=== PATIENT | male | born 1985 | race Caucasian/White ===

== ENCOUNTER 2021-01-02 14:54 | Emergency (ER) | payer SELFPAY ==
[~2021-01-02] VITALS: Ht 180.3 cm; Wt 84.0 kg
[2021-01-02] MEDS ORDERED: IV NORMAL SALINE 1000ML BAG 1,000 ML IV ONE (15:00)
--- NOTE | 2021-01-02 15:12 | PHYS DOC ---
General Adult HPI: HPI: Patient is a 35 year old male who presents with brought here by EMS from his job at [employer] [employer] after they called EMS because he could not stay awake. Patient states that he does have addiction problems. He states that he gets [address] off the [address] take for his chronic knee and back pain. He admits to smoking Amphetamines last night. He states he never been diagnosed with anything. He states he takes it for pain and to help keep him up because he works very long shifts. Patient currently very drowsy and falling asleep but is still oriented x3. He is easily waking up. We did have to put him on 2 L of oxygen as he desaturated when he fell asleep. Patient is refusing Narcan stat ing that " it will make me throw up". Denies chest pain, shortness of breath, abdominal pain, nausea, vomiting, diarrhea, fevers, headache, dizziness, focal weakness, numbness or tingling. (HERMILA CEVALLOS APRN) Review of Systems: Review of Systems: Constitutional: Denies fever or chills. [] Eyes: Denies change in visual acuity. [] HENT: Denies nasal congestion or sore throat. [] Respiratory: Denies cough or shortness of breath. [] Cardiovascular: Denies chest pain or edema. [] GI: Denies abdominal pain, nausea, vomiting, bloody stools or diarrhea. [] : Denies dysuria. [] Musculoskeletal: Denies back pain or joint pain. [] Integument: Denies rash. [] Neurologic: Denies headache, focal weakness or sensory changes. +AMS Endocrine: Denies polyuria or polydipsia. [] Lymphatic: Denies swollen glands. [] Psychiatric: Denies depression or anxiety. [] (HERMILA CEVALLOS FLOORHAND) Heart Score: C/O Chest Pain: No Risk Factors: Risk Factors: DM, Current or recent (<one month) smoker, HTN, HLP, family history of CAD, obesity. Risk Scores: Score 0 - 3: 2.5% MACE over next 6 weeks - Discharge Home Score 4 - 6: 20.3% MACE over next 6 weeks - Admit for Clinical Observation Score 7 - 10: 72.7% MACE over next 6 weeks - Early Invasive Strategies (HERMILA CEVALLOS APRN) Current Medications: Current Medications Medications (Trade) Dose Ordered Sig/Sudhir Start Time Stop Time Status Last Admin Dose Admin Sodium Chloride 1,000 ml @ 1,000 mls/hr 1X ONCE 01/02/21 15:00 01/02/21 15:59 UNV (HERMILA CEVALLOS APRN) Physical Exam: PE: Constitutional: Well developed, well nourished, no acute distress, non-toxic appearance. [] HENT: Normocephalic, atraumatic, bilateral external ears normal, oropharynx moist, no oral exudates, nose normal. [] Eyes: PERRLA, EOMI, conjunctiva normal, no discharge. [] Neck: Normal range of motion, no tenderness, supple, no stridor. [] Cardiovascular:Heart rate regular tachycardia rhythm, no murmur [] Lungs & Thorax: Bilateral breath sounds clear to auscultation [] Abdomen: Bowel sounds normal, soft, no tenderness, no masses, no pulsatile masses. [] Skin: Warm, diaphoretic, no erythema, no rash. [] Back: No tenderness, no CVA tenderness. [] Extremities: No tenderness, no cyanosis, no clubbing, ROM intact, no edema. [] Neurologic: Drowsy, Alert and oriented X 3, normal motor function, normal sensory function, no focal deficits noted. [] Psychologic: Affect normal, judgement normal, mood normal. [] (HERMILA CEVALLOS APRN) EKG: EK and read as Sinus Tachycardia Rhythm and no STEMI (HERMILA CEVALLOS APRN) Radiology/Procedures: Radiology/Procedures: [] Impression: [facility] [address] [place] [address] IMAGING REPORT Signed PATIENT: MICHAEL JIMENEZ ACCOUNT: [id number] : 1985 LOCATION: ER AGE: 35 SEX: M EXAM STATUS: PRE ER ORD. PHYSICIAN: HERMILA CEVALLOS APRN REASON: ALTERED MENTAL STATUS PROCEDURE: PORTABLE CHEST 1V AP chest x-ray HISTORY: Altered mental status. FINDINGS: Heart size normal. Mediastinal silhouette is normal. No pneumothorax, pulmonary opacities or pleural effusions. Bones are unremarkable. IMPRESSION: No acute process. Electronically signed by: Michael Forbes MD (01/02/2021 3:15 PM) [facility] [place] DICTATED and SIGNED BY: MICHAEL FORBES MD DATE: 01/02/21 [id number] (HERMILA CEVALLOS APRN) Course & Med Decision Making: Course & Med Decision Making Pertinent Labs and Imaging studies reviewed. (See chart for details) See HPI. Alert easily with stimulation and remains alert oriented x3. Speaks in full clear sentences. He is answering my questions appropriately. Skin pink warm and diaphoretic. He is tachycardic. He is denying taking other medications or drugs. Patient is moving all extremities equally and able to scoot over to the ED cot from the ambulance cot. Patient is refusing to give a urine specimen. He states that he will sign himself out. Patient cannot stay awake to sign himself out. He is also requiring some oxygen as when he falls asleep he desaturates. Patient is more alert and oriented. He has been off of oxygen and keeping his saturation to 93-94%. However he still dips down to around 89 to 90% on room air. He states he does not care and he needs to leave. He signed out AMA. He is alert and oriented x4. [] (HERMILA CEVALLOS APRN) Course & Med Decision Making I have reviewed and was available for consultation in the emergency department for this patient that was seen by midlevel provider. Of note, patient signed out AGAINST MEDICAL ADVICE after my shift was over. Radha Snyder DO (RADHA SNYDER DO) Yun Disclaimer: Yun Disclaimer: This electronic medical record was generated, in whole or in part, using a voice recognition dictation system. (HERMILA CEVALLOS APRN) Departure Departure Impression: Primary Impression: Left against medical advice Additional Impression: Drug intoxication Qualified Codes: F19.920 - Other psychoactive substance use, unspecified with intoxication, uncomplicated Disposition: 07 LEFT AGAINST MEDICAL ADVICE Condition: GOOD HERMILA CEVALLOS APRN Jan 02, 2021 15:12 RADHA SNYDER DO Jan 03, 2021 06:05
--- NOTE | 2021-01-02 15:17 | RAD ---
AP chest x-ray HISTORY: Altered mental status. FINDINGS: Heart size normal. Mediastinal silhouette is normal. No pneumothorax, pulmonary opacities o r pleural effusions. Bones are unremarkable. IMPRESSION: No acute process. Electronically signed by: Acosta Forbes MD (01/02/2021 3:15 PM) [facility] [place]
[2021-01-02 15:34] LABS: BASO # 0.1 x10^3/uL (0.0-0.2); BASO % 1 % (0-3); EOS # 0.4 x10^3/uL (0.0-0.7); EOS % 4 % (0-3); HEMATOCRIT 41.1 % (39.0-53.0); HEMOGLOBIN 14.1 g/dL (13.0-17.5); LYMPH # 2.5 x10^3/uL (1.0-4.8); LYMPH % 25 % (24-48); MEAN CORPUSCULAR HEMOGLOBIN 31 pg (25-35); MEAN CORPUSCULAR HGB CONC 34 g/dL (31-37); MEAN CORPUSCULAR VOLUME 91 fL (79-100); MONO # 0.8 x10^3/uL (0.0-1.1); MONO % 8 % (0-9); NEUT # 6.2 x10^3/uL (1.8-7.7); NEUT % 61 % (31-73); PLATELET COUNT 423 x10^3/uL (140-400); RED BLOOD COUNT 4.49 x10^6/uL (4.30-5.70)
[2021-01-02 15:44] LABS: ANION GAP 7 (6-14); BLOOD UREA NITROGEN 14 mg/dL (8-26); BUN/CREATININE RATIO 13 (6-20); CALCIUM 9.1 mg/dL (8.5-10.1); CARBON DIOXIDE 29 mmol/L (21-32); CHLORIDE 105 mmol/L (98-107); CREATININE 1.1 mg/dL (0.7-1.3); GFR 76.2; GLUCOSE 145 mg/dL (70-99); POTASSIUM 3.6 mmol/L (3.5-5.1); SODIUM 141 mmol/L (136-145)
[2021-01-02 15:51] LABS: ACETAMIN < 2 mcg/ml (10-30); ALK PHOS 81 U/L (46-116); ALT (SGPT) 37 U/L (16-63); AST (SGOT) 15 U/L (15-37); SALIC < 2.8 mg/dL (2.8-20.0)
[2021-01-02 15:52] LABS: ETHANOL < 10 mg/dL (0-10)
[2021-01-02 16:04] LABS: TOTAL BILIRUBIN < 0.1 mg/dL (0.2-1.0)
--- NOTE | 2021-01-02 17:24 | EKG ---
[facility] [address] [place] [address] Test Date: 2021-01-02 Test Time: 15:20:21 Pat Name: MICHAEL JIMENEZ Department: Room: Gender: M Napper Runner: : 1985 Requested By: HERMILA CEVALLOS Order Number: [id number] Reading MD: Measurements Intervals [place] Rate: 104 P: 1 [place]: 108 QRS: 31 QRSD: 96 T: 45 QT: 326 QTc: 429 Interpretive Statements SINUS TACHYCARDIA OTHERWISE NORMAL ECG RI6.02 No previous ECG available for comparison
[2021-01-02] MEDS ORDERED: ONDANSETRON PF 4 MG/2 ML VIAL. IVP ONE (17:45)
[2021-01-02 18:41] VITALS: BP 119/87
== END 2021-01-02 19:06 | disposition left against medical advice (07) ==
LOC: ER 14:54
DX: F19.920 Other psychoactive substance use, unspecified with intoxication, uncomplicated (principal); G89.29 Other chronic pain
CPT/HCPCS: 36415; 71045; 80053; 80329; 82550; 84484; 85025; 93005; 96361; 96374; 99285; G0480; J2405; J7030